=== PATIENT | female | born 2000 | race Two or more races ===

== ENCOUNTER 2021-09-06 04:00 | Emergency (ER) | payer OTHER ==
[~2021-09-06] VITALS: Ht 170.2 cm; Wt 70.3 kg
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
--- NOTE | 2021-09-06 04:13 | NUR ---
URINE COLLECTED AND SENT TO LAB
[2021-09-06] MEDS ORDERED: TDAP [DIPH/PERTUSSIS/TET] 0.5 ML VIAL IM ONE ×2 (04:15→04:30)
[2021-09-06 05:57] VITALS: BP 131/90
--- NOTE | 2021-09-06 05:57 | NUR ---
Patient discharged to home in stable condition. Written and verbal after care instructions given. Patient verbalizes understanding of instruction.
== END 2021-09-06 06:06 | disposition home or self-care (01) ==
LOC: ER 04:09
DX: S00.81XA Abrasion of other part of head, initial encounter (principal); Z88.6 Allergy status to analgesic agent; W10.9XXA Fall (on) (from) unspecified stairs and steps, initial encounter; Y93.89 Activity, other specified; Y92.89 Other specified places as the place of occurrence of the external cause; Y99.8 Other external cause status
CPT/HCPCS: 70450-TC; 84703-TC; 90715